=== PATIENT | male | born 1965 | race Caucasian/White ===

== ENCOUNTER 2018-07-05 19:39 | Emergency (ER) | payer OTHER ==
[~2018-07-05] VITALS: Ht 167.6 cm; Wt 82.4 kg
[2018-07-05 19:41] VITALS: Ht 167.6 cm; Wt 82.4 kg
--- NOTE | 2018-07-05 20:21 | ERD ---
ER Documentation Chief Complaint Chief Complaint COUGH, POST NASAL DRIP, WITH ST X2DAYS; IBUORIFEN @ 1200 HPI This is a 52-year-old male who presents emergency department with complaints of sore throat, sinus headache, coughing, fever for about 2 days. Denies headache, head injury, loss of consciousness, dizziness, neck pain, neck stiffness, difficulty swallowing, difficulty breathing lying flat, shoulder pain, chest pain, back pain, abdominal pain, nausea, vomiting, constipation, diarrhea, urinary symptoms, loss of bowel and bladder control, trauma, injury, falls, difficulty walking due to pain, numbness or tingling sensation, calf pain, recent travel, recent major surgery in the last 3 weeks, calf pain, recent long travel, recent exposure to any illness, recent antibiotic use in the last 3 months, seizures. Past medical history: Surgical history: Social: Denies smoking, use of alcoholic beverages, use of illegal drugs. ROS All systems reviewed and are negative except as per history of present illness. Medications Home Meds Active Scripts Benzonatate* (Tessalon Perle*) 100 Mg Capsule, 100 MG PO Q8H PRN for COUGH, #14 CAP Prov:PASILABAN,KLAR F 07/05/18 Ondansetron Hcl* (Zofran*) 4 Mg Tablet, 4 MG PO Q8H PRN for NAUSEA AND/OR VOMITING, #30 TAB Prov:PASILABAN,KLAR F 07/05/18 Acetaminophen* (Tylophen*) 500 Mg Capsule, 1 CAP PO Q6H PRN for PAIN AND OR ELEVATED TEMP, #20 CAP Prov:PASILABAN,KLAR F 07/05/18 Ibuprofen* (Motrin*) 800 Mg Tab, 800 MG PO Q6H PRN for PAIN AND OR ELEVATED TEMP, #30 TAB Prov:PASILABAN,KLAR F 07/05/18 Oseltamivir Phosphate* (Tamiflu*) 75 Mg Capsule, 75 MG PO BID for 5 Days, CAP Prov:PASILABAN,KLAR F 07/05/18 Allergies Allergies: Coded Allergies: No Known Allergy (Unverified , 07/05/18) PMhx/Soc Medical and Surgical Hx: pt denies Medical Hx, pt denies Surgical Hx Hx Alcohol Use: No Hx Substance Use: No Hx Tobacco Use: No Smoking Status: Never smoker Physical Exam Vitals Vital Signs Date Temp Pulse Resp B/P (MAP) Pulse Ox O2 O2 Flow FiO2 Time Delivery Rate 07/05/18 99.5 78 16 132/78 99 Room Air 23:19 (96) 07/05/18 100.7 22:04 07/05/18 39.5 20:46 07/05/18 103.1 104 19 168/77 95 19:41 (107) Physical Exam Const: No acute distress Head: Atraumatic Eyes: Normal Conjunctiva ENT: Normal External Ears, Nose and Mouth. Bilateral ears: TMs are not erythematous. No bleeding. No discharge. No hearing loss. No mastoid tenderness. Nose: Midline. There is frontal and maxillary sinus tenderness to palpation. Throat: Uvula is in midline and nondisplaced. Tonsils are +2 bilaterally with redness but no exudates. Tolerating secretions. Patent airway. Speaks full and clear sentences. No tripoding. Neck: Full range of motion. No meningismus. No nuchal rigidity. No signs of meningeal irritation. Resp: Clear to auscultation bilaterally Cardio: Regular rate and rhythm, no murmurs Abd: Soft, non tender, non distended. Normal bowel sounds Skin: No petechiae or rashes Back: No midline or flank tenderness Ext: No cyanosis, or edema Neur: Awake and alert. No neurological deficits. Psych: Normal Mood and Affect Result Diagram: 07/05/18203207/05/182032 Results 24 hrs Laboratory Tests Test 07/05/18 20:33 07/05/18 20:42 White Blood Count 7.1 10^3/ul Red Blood Count 4.85 10^6/ul Hemoglobin 15.0 g/dl Hematocrit 43.8 % Mean Corpuscular Volume 90.3 fl Mean Corpuscular Hemoglobin 30.9 pg Mean Corpuscular Hemoglobin Concent 34.2 g/dl Red Cell Distribution Width 12.1 % Platelet Count 181 10^3/UL Mean Platelet Volume 9.8 fl Immature Granulocytes % 0.300 % Neutrophils % 77.5 % Lymphocytes % 9.6 % Monocytes % 11.7 % Eosinophils % 0.3 % Basophils % 0.6 % Nucleated Red Blood Cells % 0.0 /100WBC Immature Granulocytes # 0.020 10^3/ul Neutrophils # 5.5 10^3/ul Lymphocytes # 0.7 10^3/ul Monocytes # 0.8 10^3/ul Eosinophils # 0.0 10^3/ul Basophils # 0.0 10^3/ul Nucleated Red Blood Cells # 0.0 10^3/ul Sodium Level 136 mmol/L Potassium Level 4.1 mmol/L Chloride Level 99 mmol/L Carbon Dioxide Level 26 mmol/L Anion Gap 11 Blood Urea Nitrogen 22 mg/dl Creatinine 0.90 mg/dl Est Glomerular Filtrat Rate mL/min > 60 mL/min Glucose Level 131 mg/dl Lactic Acid Level 1.1 mmol/L Calcium Level 9.1 mg/dl Total Bilirubin 0.2 mg/dl Direct Bilirubin 0.00 mg/dl Indirect Bilirubin 0.2 mg/dl Aspartate Amino Transf (AST/SGOT) 49 IU/L Alanine Aminotransferase (ALT/SGPT) 53 IU/L Alkaline Phosphatase 100 IU/L Total Protein 8.2 g/dl Albumin 4.8 g/dl Globulin 3.40 g/dl Albumin/Globulin Ratio 1.41 Monoscreen Positive Urine Color YELLOW Urine Clarity CLEAR Urine pH 5.0 Urine Specific [place] 1.026 Urine Ketones NEGATIVE mg/dL Urine Nitrite NEGATIVE mg/dL Urine Bilirubin NEGATIVE mg/dL Urine Urobilinogen NEGATIVE mg/dL Urine Leukocyte Esterase NEGATIVE Joan/ul Urine Hemoglobin NEGATIVE mg/dL Urine Glucose NEGATIVE mg/dL Urine Total Protein NEGATIVE mg/dl Current Medications Medications Dose Sig/Fabian Start Time Status Last (Trade) Ordered Route PRN Stop Time Admin Dose Reason Admin Sodium 1,000 ml @ Q1H ONCE 07/05/18 DC 07/05/18 Chloride 1,000 mls/hr IV 20:30 20:37 07/05/18 21:29 Ceftriaxone 50 ml @ ONCE ONCE 07/05/18 DC 07/05/18 Sodium 100 mls/hr IVPB 20:30 20:36 07/05/18 20:59 100 ml @ ONCE ONCE 07/05/18 DC 07/05/18 Acetaminophen 400 mls/hr IVPB 20:30 20:46 07/05/18 20:44 Ketorolac 30 mg ONCE STAT 07/05/18 DC 07/05/18 Tromethamine IV 20:24 20:46 (Toradol) 07/05/18 20:26 Oseltamivir 150 mg ONCE ONCE 07/05/18 DC 07/05/18 Phosphate PO 22:00 21:44 (Tamiflu) 07/05/18 22:01 10 mg ONCE ONCE 07/05/18 DC 07/05/18 Dexamethasone IV 22:00 21:44 (Decadron) 07/05/18 22:01 Sodium 1,000 ml @ Q1H ONCE 07/05/18 DC 07/05/18 Chloride 1,000 mls/hr IV 22:00 22:11 07/05/18 22:59 Procedures/MDM Diagnostic tests: Influenza a and B: Positive for influenza A. Negative for influenza B. Rapid strep screen: Monospot: Positive. Lactic acid: Reviewed. Blood works: Reviewed. Negative. Blood cultures x2: Sent. Chest x-ray: Calcified aorta consistent with atherosclerotic disease. Mild degenerative changes of the thoracic spine. Mild increased interstitial changes with no focal infiltrate. Urinalysis: Reviewed. Treatment: Saline lock. Tylenol IV. Toradol IV. Normal saline IV bolus. Ceftriaxone IV. Dexamethasone IV. Re-evaluation: Temperature responded to antipyretic medication. Denies pain. No episode of emesis here in the emergency department. Tolerating liquids by mouth. No neck stiffness. Lung sounds are clear to auscultation. No neurol ogical deficits. Stated that he feels much better at this time and that he is ready to go home. Family member also stated they are ready to go home. Differential diagnosis I have low suspicion for sepsis, mastoiditis, peritonsillar abscess, pneumonia, bronchospasm, severe dehydration, airway obstruction. Final diagnosis: Influenza A. Mononucleosis. Fever. This case was discussed with my supervising physician, Dr. Jose M Espana who agreed my medical decision making. Prescription: Tessalon Perles. Zofran. Tylenol. Motrin. Tamiflu. Follow-up with PCP in the next 24-48 hours. Come back here in the emergency department for any new symptoms or any worsening symptoms. All questions and concerns were answered. Patient and family members verbalized understanding and agreed with plan of care. Hemodynamically stable on discharge. Departure Diagnosis: Primary Impression: Influenza A Additional Impressions: Mononucleosis Fever Condition: Stable Additional Instructions: Follow-up with PCP in the next 24-48 hours. Come back here in the emergency department for any new symptoms or any worsening symptoms. SILVER CARDONA Jul 05, 2018 20:21
[2018-07-05] MEDS ORDERED: KETOROLAC 30 MG INJ IV STA (20:24)
[2018-07-05] MEDS ORDERED: CEFTRIAXONE 1 GM/50 ML (PMX) 50 ML IVPB ONE (20:30)
[2018-07-05] MEDS ORDERED: ACETAMINOPHEN 1000MG/100ML IV 100 ML IVPB ONE (20:30)
[2018-07-05] MEDS ORDERED: SOD CHLORIDE 0.9% 1,000 ML IV ONE ×2 (20:30→22:00)
[2018-07-05] MEDS ORDERED: DEXAMETHASONE 10 MG/ML 1 ML INJ IV ONE (22:00)
[2018-07-05] MEDS ORDERED: OSELTAMIVIR 75 MG CAP PO ONE (22:00)
[2018-07-05] MEDS ORDERED: ACET500C5 PO (23:01)
[2018-07-05] MEDS ORDERED: OSEL75CA23 PO (23:01)
[2018-07-05] MEDS ORDERED: IBUP800T48 PO (23:01)
[2018-07-05] MEDS ORDERED: ONDA4TAB8 PO (23:02)
[2018-07-05] MEDS ORDERED: BENZ-6 PO (23:03)
[2018-07-05 23:19] VITALS: BP 132/78; PULSE 78; RESP 16
== END 2018-07-05 23:20 | disposition home or self-care (01) ==
LOC: FTE 19:39
DX: J10.1 Influenza due to other identified influenza virus with other respiratory manifestations (principal); B27.90 Infectious mononucleosis, unspecified without complication
CPT/HCPCS: 71046; 80053; 81003; 83605; 85025; 86308; 87040; 87400; 87880; 96374; 96375; J0131; J0696; J1100; J1885; J7030; Z7502; Z7610